=== PATIENT | male | born 1990 | race American Indian/Alaskan Native ===

== ENCOUNTER 2019-05-16 13:16 | Emergency (ER) | payer SELFPAY ==
[2019-05-16 13:41] VITALS: BP 158/103
--- NOTE | 2019-05-16 14:09 | Emergency Department Report ---
Chief Complaint: Medical Clearance Stated Complaint: STD CHECK Time Seen by Provider: 05/16/19 14:04 - HPI History of Present Illness: Pt presents for STI check x today He states his partner contacted him this morning and told him he needs to get tested. He denies any dysuria, penile discharge, testicular pain/swelling, fever, or joint pain/swelling - Exam Vital Signs: Vital Signs 05/16/19 13:23 Temperature 98.1 F Pulse Rate 114 H Respiratory 19 Rate Blood Pressure 158/103 O2 Sat by Pulse 97 Oximetry MSE screening note: Focused history and physical exam performed. Due to findings the following was ordered: Pt here for STI testing He states he is asymptomatic Pt to have repeat HR-if normal, pt may f[facility]pt [facility] for [facility]I evaluation If HR elevated, pt to be seen here in ED for further evaluation ED Medical Decision Making - Medical Decision Making Pt left prior to reevaluation ED Disposition for MSE Condition: Stable
== END 2019-05-16 14:40 | disposition left against medical advice (07) ==
LOC: ED 13:16
DX: Z11.3 Encounter for screening for infections with a predominantly sexual mode of transmission (principal); Z53.21 Procedure and treatment not carried out due to patient leaving prior to being seen by health care provider

== ENCOUNTER 2019-10-04 19:44 | Emergency (ER) | payer SELFPAY ==
[2019-10-04 20:24] VITALS: BP 142/78
--- NOTE | 2019-10-04 22:06 | Emergency Department Report ---
Chief Complaint: Upper Respiratory Infection Stated Complaint: FLU SYMPTOMS/SINUS Time Seen by Provider: 10/04/19 21:57 - HPI History of Present Illness: 29yo pt states that he has mild sneezing and watery eyes x 4 days. - ROS Review of Systems: All systems reviewed and negative. - Exam Vital Signs: Vital Signs Reviewed 10/04/19 20:23 Temperature 99.3 F Pulse Rate 76 Respiratory 18 Rate Blood Pressure 142/78 O2 Sat by Pulse 98 Oximetry Physical Exam: General-WNL HEENNT-WNL Heart-WNL Lungs-WNL Abdomen-WNL MS-WNL Neuro-WNL Psych-WNL Skin-WNL MSE screening note: Focused history and physical exam performed. Due to findings the following was ordered: Pt was explained that he is being MSE screened out. Pt was instructed to continue daily activities, Claritin,and see PCP. He was informed to see ER if severe symptoms arise or current symptoms become worse. Patient discussed with doctor:: TOM GEIGER ED Medical Decision Making - Medical Decision Making Pt was explained that he is being MSE screened out. Pt was instructed to continue daily activities, Claritin,and see PCP. He was informed to see ER if severe symptoms arise or current symptoms become worse. ED Disposition for MSE Clinical Impression: Allergic rhinitis Disposition: Z-07 MED SCREENING EXAM-LEFT Is pt being admited?: No Does the pt Need Aspirin: No Condition: Stable Additional Instructions: Pt was explained that he is being MSE screened out. Pt was instructed to continue daily activities, Claritin,and see PCP. He was informed to see ER if severe symptoms arise or current symptoms become worse. Referrals: PRIMARY CARE,MD [Primary Care Provider] - 3-5 Days [facility] [Outside] - 3-5 Days Print Language: MAORI
== END 2019-10-04 22:15 | disposition left against medical advice (07) ==
LOC: ED 19:44
DX: J30.9 Allergic rhinitis, unspecified (principal)
CPT/HCPCS: 99281

== ENCOUNTER 2019-10-18 07:29 | Emergency (ER) | payer SELFPAY ==
--- NOTE | 2019-10-18 08:30 | XRay Report ---
CHEST 1 VIEW INDICATION: Chest Pain. COMPARISON: None FINDINGS: Support devices: None. Heart: Within normal limits. Lungs/Pleura: No acute air space or interstitial disease. Additional findings: None. IMPRESSION: No acute findings. Signer Name: Mateus Schreiber Jr, MD Signed: 10/18/2019 8:25 AM Workstation Name: [id number]
[2019-10-18 10:01] VITALS: BP 138/80
[2019-10-18 11:24] LABS: Basophils % (Auto) 0.4 % (0.0-1.8); Eosinophils % (Auto) 0.7 % (0.0-4.3); Hematocrit 48.1 % (35.5-45.6); Hemoglobin 15.4 gm/dl (11.8-15.2); Lymphocytes % (Auto) 37.8 % (13.4-35.0); Mean Corpuscular HGB Conc 32 % (32-34); Mean Corpuscular Volume 82 fl (84-94); Monocytes # (Auto) 0.6 K/mm3 (0.0-0.8); Monocytes % (Auto) 11.1 % (0.0-7.3); Platelet Count 219 K/mm3 (140-440); Red Cell Distribution Width 15.1 % (13.2-15.2)
[2019-10-18 11:52] LABS: BUN/Creatinine Ratio 8; Blood Urea Nitrogen 6 mg/dL (9-20); Calcium 9.2 mg/dL (8.4-10.2); Hemolysis Index 14
--- NOTE | 2019-10-18 12:33 | Emergency Department Report ---
ED Chest Pain HPI - General Chief Complaint: Chest Pain Stated Complaint: CHEST PAIN Time Seen by Provider: 10/18/19 10:40 Source: patient Mode of arrival: Ambulatory Limitations: No Limitations - History of Present Illness Initial Comments: This is a 29-year-old male nontoxic, well nourished in appearance, no acute signs of distress presents to the ED with c/o of intermittent midsternum chest pain and SOB x2 months. Patient currently denies any SOB. Patient denies any radiation of pain. Patient describes pain as aching intermittently. Patient d enies any upper respiratory symptoms. Patient denies any shortness of breath, hemoptysis, fever, chills, nausea, vomiting, headache, stiff neck, numbness, tingling, abdominal pain. Patient denies pleuritic chest pain. Patient denies any recent travels or long car rides. Patient denies any recent surgeries or any sick contacts. Patient denies any drug allergies. Denies any PMH. MD Complaint: chest pain -: month(s) (2) Pain Location: other (midsternum) Pain Radiation: none Severity: mild Severity scale (0 -10): 3 Quality: aching Consistency: intermittent Improves With: nothing Worsens With: nothing re: denies: nausea, vomting, diaphoresis, dyspnea, sense of impending doom Other Symptoms: denies: cough, fever, syncope, rash, acid taste in mouth, leg swelling, palpitations, burping Treatments Prior to Arrival: none Aspirin use within the Past 7 Days: (0) No - Related Data On Oral Contraceptives: No Previous Rx's Medication Instructions Recorded Last Taken Type Naproxen [Naprosyn TAB] 375 mg PO BID #20 tablet 04/10/14 Unknown Rx traMADoL [Ultram 50 MG tab] 50 mg PO Q6HR PRN #12 tablet 04/10/14 Unknown Rx Cyclobenzaprine [Flexeril] 10 mg PO QHS PRN #10 tablet 03/29/19 Unknown Rx Ibuprofen [Motrin] 600 mg PO Q8H PRN #20 tablet 03/29/19 Unknown Rx Naproxen 500 mg PO Q12H PRN #20 tablet 10/18/19 Unknown Rx Allergies Allergy/AdvReac Type Severity Reaction Status Date / Time No Known Allergies Allergy Unverified 05/16/19 13:25 Heart Score - HEART Score History: Slightly suspicious EKG: Normal Age: < 45 Risk factors: No known risk factors Troponin: < normal limit HEART Score: 0 ED Review of Systems ROS: Stated complaint: CHEST PAIN Other details as noted in HPI Constitutional: denies: chills, fever Eyes: denies: eye pain, eye discharge, vision change ENT: denies: ear pain, throat pain Respiratory: shortness of breath. denies: cough, wheezing Cardiovascular: chest pain. denies: palpitations Endocrine: no symptoms reported Gastrointestinal: denies: abdominal pain, nausea, diarrhea Genitourinary: denies: urgency, dysuria Musculoskeletal: denies: back pain, joint swelling, arthralgia Skin: denies: rash, lesions Neurological: denies: headache, weakness, paresthesias Psychiatric: denies: anxiety, depression Hematological/Lymphatic: denies: easy bleeding, easy bruising ED Past Medical Hx - Past Medical History Previous Medical History?: Yes Hx Hypertension: Yes (Off meds x 2 years 2019) Hx Seizures: Yes (Hx last seizure 2018) Additional medical history: ADHD - Surgical History Past Surgical History?: No - Social History Smoking Status: Never Smoker Substance Use Type: Alcohol - Medications Home Medications: Home Medications Medication Instructions Recorded Confirmed Last Taken Type Naproxen [Naprosyn TAB] 375 mg PO BID #20 tablet 04/10/14 Unknown Rx traMADoL [Ultram 50 MG tab] 50 mg PO Q6HR PRN #12 tablet 04/10/14 Unknown Rx Cyclobenzaprine [Flexeril] 10 mg PO QHS PRN #10 tablet 03/29/19 Unknown Rx Ibuprofen [Motrin] 600 mg PO Q8H PRN #20 tablet 03/29/19 Unknown Rx Naproxen 500 mg PO Q12H PRN #20 tablet 10/18/19 Unknown Rx ED Physical Exam - General Limitations: No Limitations General appearance: alert, in no apparent distress - Head Head exam: Present: atraumatic, normocephalic - Eye Eye exam: Present: normal appearance - Neck Neck exam: Present: normal inspection, full ROM. Absent: tenderness, menin gismus, lymphadenopathy - Respiratory Respiratory exam: Present: normal lung sounds bilaterally, chest wall tenderness (midsernum). Absent: respiratory distress, wheezes, rales, rhonchi, stridor, accessory muscle use, decreased breath sounds, prolonged expiratory - Cardiovascular Cardiovascular Exam: Present: regular rate, normal rhythm, normal heart sounds. Absent: bradycardia, tachycardia, irregular rhythm, systolic murmur, diastolic murmur, rubs, gallop - Extremities Exam Extremities exam: Present: normal inspection, full ROM - Back Exam Back exam: Present: normal inspection, full ROM - Neurological Exam Neurological exam: Present: alert, oriented X3, normal gait - Psychiatric Psychiatric exam: Present: normal affect, normal mood - Skin Skin exam: Present: warm, dry, intact, normal color. Absent: rash ED Course Vital Signs 10/18/19 07:51 Temperature 98.4 F Pulse Rate 63 Respiratory 20 Rate Blood Pressure 138/80 O2 Sat by Pulse 98 Oximetry - Reevaluation(s) Reevaluation #1: 10/18/19 12:34 Patient is speaking in full sentences with no signs of distress noted. JOCELIN score - Jocelin Score Age > 65: (0) No Aspirin use within the Past 7 Days: (0) No 3 or more CAD Risk Factors: (0) No 2 or more Angina events in past 24 hrs: (0) No Known CAD with more than 50% Stenosis: (0) No Elevated Cardiac Markers: (0) No ST Deviation Greater than 0.5mm: (0) No JOCELIN Score: 0 ED Medical Decision Making - Lab Data Result diagrams: 10/18/19 11:08 10/18/19 11:08 - Medical Decision Making This is a 29-year-old male that presents with atypical chest pain versus costoc hondritis. Patient is stable and was examined. JOCELIN and HEART score 0 pints. Wells criteria for DVT/SVT/PE 0 points. EKG normal sinus rhythm with no significant changes in ST. Chest xray dictated by the radiologist. PAtient is notified of the Xray report with no questions noted. Labs within normal limits. Negative troponin. Patient was instructed to Follow-up with a primary care/digital designer doctor in 2 days or if symptoms worsen and continue return to emergency room as soon as possible. At time of discharge, the patient does not seem toxic or ill in appearance. No acute signs of distress noted. Patient agrees to discharge treatment plan of care. No further questions noted by the patient. Critical care attestation.: If time is entered above; I have spent that time in minutes in the direct care of this critically ill patient, excluding procedure time. ED Disposition Clinical Impression: Atypical chest pain, Costochondritis Disposition: - TO HOME OR SELFCARE Is pt being admited?: No Does the pt Need Aspirin: No Condition: Stable Instructions: Chest Pain (ED), Costochondritis (ED) Additional Instructions: Follow-up with a primary care/digital designer doctor in 2 days or if symptoms worsen and continue return to emergency room as soon as possible. Prescriptions: Naproxen 500 mg PO Q12H PRN #20 tablet PRN Reason: Pain , Severe (7-10) Referrals: PRIMARY CARE, [Primary Care Provider] - 3-5 Days [facility] [Provider Group] - 3-5 Days HAO MINOR MD [Staff Physician] - 10/20/19 TERESA RAYMOND MD [Staff Physician] - 10/20/19 Forms: Work/School Release Form(ED)
== END 2019-10-18 12:45 | disposition home or self-care (01) ==
LOC: ED 07:29
DX: M94.0 Chondrocostal junction syndrome [Tietze] (principal); R07.89 Other chest pain; I10 Essential (primary) hypertension; R56.9 Unspecified convulsions; F90.9 Attention-deficit hyperactivity disorder, unspecified type; Z79.1 Long term (current) use of non-steroidal anti-inflammatories (NSAID); Z79.899 Other long term (current) drug therapy
CPT/HCPCS: 36415; 71045; 80048; 84484; 85025; 93005; 93010

== ENCOUNTER 2020-01-19 12:07 | Emergency (ER) | payer SELFPAY ==
[2020-01-19 13:01] VITALS: BP 129/72
--- NOTE | 2020-01-19 13:24 | Emergency Department Report ---
Chief Complaint: Eye Problems Stated Complaint: PINK EYE - HPI History of Present Illness: 29-year-old -[place] male presents to the emergency room for bilateral redness and dryness of both eyes x4 days. - Exam Vital Signs: Vital Signs 01/19/20 12:59 Temperature 98.4 F Pulse Rate 68 Respiratory 18 Rate Blood Pressure 129/72 O2 Sat by Pulse 99 Oximetry Physical Exam: Alert and oriented x3 no acute distress nontoxic in appearance Bilateral eyes conjunctive injected with clear discharge. MSE screening note: Focused history and physical exam performed. Due to findings the following was ordered: 29-year-old -[place] male presents to the emergency room for bilateral redness and dryness of both eyes x4 days. ED Disposition for MSE Disposition: Z-07 MED SCREENING EXAM-LEFT Is pt being admited?: No Does the pt Need Aspirin: No Condition: Stable Additional Instructions: 29-year-old -[place] male presents to the emergency room for bilateral redness and dryness of both eyes x4 days. Referrals: HAO MINOR MD [Staff Physician] - 3-5 Days [facility] [Provider Group] - 3-[address] [facility] [Outside] - 3-5 Days
== END 2020-01-19 13:30 | disposition left against medical advice (07) ==
LOC: ED 12:07
DX: H04.123 Dry eye syndrome of bilateral lacrimal glands (principal); Z53.21 Procedure and treatment not carried out due to patient leaving prior to being seen by health care provider